=== PATIENT | female | born 1975 ===

== ENCOUNTER 2017-03-20 10:55 | Emergency (ER) | payer OTHER ==
[2017-03-20 11:01] VITALS: BP 124/74; PULSE 87; TEMP 97.8; O2SAT 99; BMI 23.2
--- NOTE | 2017-03-20 11:52 | ED PDOC ---
HPI: CCC, URI, Sore Throat Time Seen by Provider: 03/20/17 11:42 Chief Complaint (Nursing): ENT Problem Chief Complaint (Provider): ENT Problem History Per: Patient History/Exam Limitations: no limitations Onset/Duration Of Symptoms: Days Current Symptoms Are (Timing): Still Present Location Of Pain: Throat Sick Contacts (Context): None Associated Symptoms: Sore Throat. denies: Fever Additional History Per: Correction Additional Complaint(s): Patient is a 42 year old female who presents to ED after being referred from [facility]. Patient reports that she was setting up her ob appts (as she is 5 weeks ) and mentioned that she had a sore throat, so they sent her to ED. Reports 6 day history of sore throat with non-productive cough and 3 day history of L conjunctival injection. Denies fever. Denies vaginal bleeding, vaginal discharge, abdominal pain, or dysuria. Past Medical History Reviewed: Historical Data, Nursing Documentation, Vital Signs Vital Signs: Last Vital Signs Temp 97.8 F 03/20/17 11:00 Pulse 87 03/20/17 11:00 Resp BP 124/74 03/20/17 11:00 Pulse Ox 99 03/20/17 14:27 - Medical History PMH: No Chronic Diseases - Surgical History Surgical History: Cholecystectomy - Family History Family History: States: No Known Family Hx - Allergies Allergies/Adverse Reactions: Allergies Allergy/AdvReac Type Severity Reaction Status Date / Time No Known Allergies Allergy Unverified 03/20/17 11:43 Curb-65 Severity Score - CURB-65 Severity Score Confusion: No Bun >19mg/dl (>7mmol/L): No Respiratory Rate greater than/equal to 30: No Systolic BP <90 or Diastolic BP less than/equal 60mmHg: No Age >64: No Curb-65 Score: 0 Percentage 30-day mortality: 0.6% Review of Systems ROS Statement: Except As Marked, All Systems Reviewed And Found Negative Constitutional: Negative for: Fever, Chills Eyes: Positive for: Conjunctivae Inflammation ENT: Positive for: Throat Pain. Negative for: Ear Pain, Nose Discharge Cardiovascular: Negative for: Chest Pain Respiratory: Negative for: Cough, Shortness of Breath Gastrointestinal: Negative for: Nausea, Vomiting, Abdominal Pain Genitourinary Female: Negative for: Vaginal Discharge, Vaginal Bleeding Musculoskeletal: Negative for: Back Pain Neurological: Negative for: Weakness, Numbness Physical Exam - Reviewed Nursing Documentation Reviewed: Yes Vital Signs Reviewed: Yes - Physical Exam Appears: Positive for: Non-toxic, No Acute Distress Skin: Positive for: Normal Color, Warm. Negative for: Rash Eye Exam: Positive for: Normal appearance (right), PERRL, Conjunctival injection (left) ENT: Positive for: TM Is/Are (WNL), Pharyngeal Erythema. Negative for: Tonsillar Exudate, Tonsillar Swelling Neck: Positive for: Normal, Painless ROM, Supple Cardiovascular/Chest: Positive for: Regular Rate, Rhythm. Negative for: Murmur Respiratory: Positive for: Normal Breath Sounds. Negative for: Rhonchi, Stridor , Wheezing, Respiratory Distress Gastrointestinal/Abdominal: Positive for: Normal Exam. Negative for: Tenderness , Distended Back: Positive for: Normal Inspection. Negative for: L CVA Tenderness, R CVA Tenderness Extremity: Positive for: Normal ROM Neurologic/Psych: Positive for: Alert, Oriented - ECG O2 Sat by Pulse Oximetry: 99 (RA) Pulse Ox Interpretation: Normal Medical Decision Making Medical Decision Making: Patient is afebrile with normal lung sounds. Unlikely pneumonia due to this presentation. Will get rapid strep to evaluate for strep pharyngitis, but more likely viral given the co-occuring conjunctivitis. Review to downtime sheet for more information. Rapid strep was negative. Patient continued to be well appearing and afebrile. She was tolerating po in ED. She was instructed on the importance of following up with OB for routine care with this . She was instructed to increase fluid and rest, and prescribed erythromycin ointment for conjunctivitis. Disposition - Clinical Impression Clinical Impression: Sore throat, Conjunctivitis - Disposition Disposition: Routine/Home Disposition Time: 13:55 Condition: GOOD
== END 2017-03-20 14:00 | disposition home or self-care (01) ==
LOC: H.ER 10:55
DX: J02.9 Acute pharyngitis, unspecified (principal); H10.9 Unspecified conjunctivitis; Z33.1 Pregnant state, incidental

== ENCOUNTER 2017-10-30 08:33 | Inpatient (IN) | payer MEDICAID, SELFPAY ==
[2017-10-30 09:09] VITALS: BMI 27.9
[2017-10-30] MEDS: Lactated Ringer's 1,000 ML IV SCH (09:18)
[2017-10-30] MEDS ORDERED: Penicillin G 5 Million Unit Vial IVPB ONE (10:12)
[2017-10-30 10:15] LABS: BASO % 0.4 % (0.0-2.0); EOS # 0.1 K/uL (0.0-0.7); EOS % 0.7 % (0.0-4.0); HEMOGLOBIN 12.5 g/dL (12.0-16.0); LYMPH # 2.8 K/uL (1.0-4.3); LYMPH % 26.1 % (20.0-40.0); MEAN CELL VOLUME 88.6 fl (81.0-99.0); MEAN CORPUSCULAR HEMOGLOBIN 28.9 pg (27.0-31.0); MEAN CORPUSCULAR HGB CONC 32.6 g/dL (33.0-37.0); MEAN PLATELET VOLUME 10.5 fl (7.2-11.7); MONO # 0.8 K/uL (0.0-0.8); MONO % 7.6 % (0.0-10.0); NEUT # 6.9 K/uL (1.8-7.0); NEUT % 65.2 % (50.0-75.0); RBC 4.34 Mil/uL (3.80-5.20); WHITE BLOOD COUNT 10.6 K/uL (4.8-10.8)
[2017-10-30] MEDS ORDERED: Oxytocin 30 UNITS in Sodium Chloride 0.9% 500 ML IV ONE (12:56)
[2017-10-30] MEDS ORDERED: ceFAZolin IV 2 gm in Dextrose 2 GM/50 ML BAG IVPB ONE ×2 (19:13→20:15)
[2017-10-30] MEDS ORDERED: Morphine 1 mg/ml preservative-free Inj(Duramorph) ONE (19:17)
[2017-10-30] MEDS ORDERED: ceFAZolin 1 GM in Sodium Chloride 0.9% 100 ML IVPB ONE ×2 (19:18→19:22)
[2017-10-30] MEDS ORDERED: Succinylcholine 200 mg/10 ml Inj IV ONE (19:19)
[2017-10-30] MEDS ORDERED: ePHEDrine 50 mg/ml Inj ONE (19:19)
[2017-10-30] MEDS ORDERED: Propofol 10 mg/ml Inj (20 ML) ONE (19:19)
[2017-10-30] MEDS ORDERED: Midazolam 2 MG/2 ML VIAL ONE (19:46)
[2017-10-30] MEDS ORDERED: DiphenhydrAMINE 50 mg/ml Inj IVP PRN (21:38)
[2017-10-30] MEDS ORDERED: Oxycodone/Acetaminophen 5/325 mg Tab PO PRN ×2 (21:38→23:32)
[2017-10-30] MEDS ORDERED: Lactated Ringer's 1,000 ML IV SCH ×2 (22:30→23:30)
[2017-10-31] MEDS: Lactated Ringer's 1,000 ML IV SCH (03:52)
[2017-10-31 07:12] LABS: HEMOGLOBIN 11.4 g/dL (12.0-16.0); MEAN CELL VOLUME 88.4 fl (81.0-99.0); MEAN CORPUSCULAR HGB CONC 32.8 g/dL (33.0-37.0); RBC 3.92 Mil/uL (3.80-5.20); RED CELL DISTRIBUTION WIDTH 13.1 % (11.5-14.5); WHITE BLOOD COUNT 13.4 K/uL (4.8-10.8)
--- NOTE | 2017-10-31 09:07 | OBDS ---
DELIVERY PERSONNEL Delivery Doctor: Yee Cerda MD Phys Asst: Jayy Mccarty RN / Maren Olmstead RN Anesthesiologist: Riaz Sweeney MD Resident: Dr. Farah MATERNAL INFORMATION Delivery Anesthesia: Spinal Medications in Delivery: Pitocin Estimated Blood Loss (ml): 800 Placenta Cultured: No Maternal Complications: None Provider Comments: While at labor and delivery in active labor, patient admitted to staff that activ e herpes lesion started approximately 48 hours ago. On exam, small healing lesion noted. At that time , decision for delivery due to active herpes infection. I discussed plan with patient and d iscussed options. Patient agrees with plan for delivery. Primary low transverse section. Patient delivered viable with Apgars of 9 and 9 at one and 5 minutes respectively. Normal uterus, normal tubes and ovaries bilaterally. Estimated blood loss 800 mL Fluids 1000 mL lactated Ringer's Urine output 700 mL clear urine No complications LABOR SUMMARY EDC: 11/17/2017 00:00 No. Babies in Womb: 1 Attempted: No Labor Anesthesia: Spinal LABOR INFORMATION Reason for Induction: Not Applicable Oxytocin: N/A Group B Beta Strep: Positive Antibiotics # of Doses: 3 Antibiotics Time of Last Dose: 1910 Steroids Given: None Reason Steroids Not Administered: Not Applicable MEMBRANES Membranes Rupture Method: Spontaneous Rupture of Membranes: 10/30/2017 08:00 Length of Rupture (hrs): 11.58 Amniotic Fluid Color: Clear Amniotic Fluid Amount: Large Amniotic Fluid Odor: Normal STAGES OF LABOR Stage 3 hrs: 0 Stage 3 min: 1 CSECTION DELIVERY Primary Indication: Active Genital Herpes CSection Urgency: Non Elective CSection Incidence: Primary Labor: Labor Elective: Nonelective CSection Incision: Lower Uterine Transverse BABY A INFORMATION Delivery Date/Time: 10/30/2017 19:35 Method of Delivery: Born in Route : No : N/A Forceps: N/A Vacuum Extraction: N/A Shoulder Dystocia : No SHOULDER DYSTOCIA BABY A Delivery Date/Time: 10/30/2017 19:35 PRESENTATION/POSITION BABY A Presentation: Cephalic Cephalic Presentation: Vertex Breech Presentation: N/A PLACENTA INFORMATION BABY A Placenta Delivery Time : 10/30/2017 19:36 Placenta Method of Delivery: Expressed Placenta Status: Delivered SCORES BABY A Heart Rate 1 min: >100 bpm Resp Effort 1 min: Good Cry Reflex Irritability 1 min: Cough or Sneeze or Pulls Away Muscle Tone 1 min: Active Motion Color 1 min: Body Garten, Extremities Blue Resuscitation Effort 1 min: Tactile Stimulation SCORE 1 MIN: 9 Heart Rate 5 min: >100 bpm Resp Effort 5 min: Good Cry Reflex Irritability 5 min: Cough or Sneeze or Pulls Away Muscle Tone 5 min: Active Motion Color 5 min: Body Garten, Extremities Blue Resuscitation Effort 5 min: N/A SCORE 5 MIN: 9 INFORMATION BABY A Gestational Age at Delivery: 37.3 Gestational Status: Outcome : Liveborn Condition : Stable Infant Sex: Male IDENTIFICATION/MEDS BABY A ID Band Number: [id number] ID Band Location: Left Leg; Left Arm WEIGHT/LENGTH BABY A Birthweight (gms): 3190 Weight (lb): 7 Weight (oz): 0 CORD INFORMATION BABY A No. Cord Vessels: 3 Nuchal Cord : Around Neck x1, Loose Cord Blood Taken: Yes Suction: Mouth; Nose ASSESSMENT BABY A Infant Complications: None Physical Findings at Delivery: Within Normal Limits Respirations: Tachypnea Immigration Paralegal/ALS Called : No Care By: Kayli Myers RN Transferred To: Nursery
--- NOTE | 2017-10-31 09:12 | OBADHP ---
Datetime: 10/30/2017 13:28 Admit Comment, IP Provider: 42 yo with IUP 37.3 wks presents c/o gush of fluid and painful c tx e/10 min since 8 am. denies vb, +FM. No headache, recent fever, chest pain, sob, no urinary sympto ms. PNC: PCP Dr Guidry, [facility]. PObH: NVD x1 2006, IAB x1. PGynH: HPV diagnosed in 2012. PMH: h/o GDM well controlled w/ diet. FMH: none Meds PNV Allergies: NKDA VS wnl Speculum: +pooling, clear fluid Pelvic: 1-2/80/-2 monitor: 150/mod variability/15x15/cat 1/ no decc A/P 42 yo with IUP 37.3 wks admitted due to SROM Admit to unit Start IV fluids Proph abx, GBS+ Initiate labor protocol Case discussed w/ Dr Cerda, OB quality control assessor Javier Ferrer PGY1 Pelvic Type - PN: Adequate Extremities - PN: Normal Abdomen - PN: Normal Back - PN: Normal Breast - PN: Normal Lungs - PN: Normal Heart - PN: Normal Thyroid - PN: Normal Neurologic - PN: Normal HEENT - PN: Normal General - PN: Normal FHR - Baseline A Provider: 150 Amniotic Fluid Color, Provider: Clear Membranes, Provider: Ruptured Pool Provider: Positive Vital Signs Provider: Reviewed IP Chief Complaint: Suspected ruptured membranes NICHD Variability Prov Fetus A: Moderate 6-25bpm NICHD Accel Fetus A IP Provider: 15X15 FHR Category Provider Fetus A: Category I NICHD Decel Fetus A IP Provider: None Dilatation, Provider: 1-2 Effacement, Provider: 80 Station, Provider: -2 Genitourinary Exam: Normal DTRs - PN: Normal EGA AdmitDate IP: 37.3 IP Adm Impression: , intrauterine IP Admit Plan: Admit to unit; Initiate labor protocol
--- NOTE | 2017-10-31 10:21 | OP ---
PROCEDURE DATE: 10/30/2017 PREOPERATIVE DIAGNOSES: Active labor, spontaneous rupture of membranes, active genital herpes lesion. POSTOPERATIVE DIAGNOSES: Active labor, spontaneous rupture of membranes, active genital herpes lesion. OPERATION PERFORMED: Primary low-flap transverse section via Pfannenstiel incision. SURGEON: Harry Cerda MD. FITNESS DIRECTOR: Aman Strauss MD. Dr. Strauss was present from the beginning of the procedure to the end of procedure. Dr. Strauss was integral in exposing the surgical field, controlling intraoperative bleeding and manual delivery of the . TYPE OF ANESTHESIA: Spinal. ANESTHESIA ADMINISTERED BY: Estuardo Lind MD. DESCRIPTION OF PROCEDURE: The patient was taken to the operating room where spinal anesthesia was found to be adequate. The patient was prepped and draped in normal sterile fashion in the dorsal supine position with a leftward tilt. A Pfannenstiel skin incision was made with a scalpel. This was carried down through to the underlying layer of fascia with scalpel. Midline defect was made in the fascial layer with a scalpel. The fascial incision was then extended bilaterally sharply with curved Tubbs scissors. The fascial layer was from the underlying rectus muscles both bluntly and sharply with curved Tubbs scissors. The rectus muscles were at the midline. The peritoneum was then identified, tented up with the Vidya clamps x2, entered sharply with the Metzenbaum scissors. This peritoneal incision was then extended superiorly and inferiorly with good visualization of the urinary bladder. Bladder blade was inserted into the abdomen. The vesicouterine peritoneum was then identified, tented up with the Vidya clamps x2, entered sharply with Metzenbaum scissors. This peritoneal incision was then extended bilaterally with Metzenbaum scissors. The bladder flap was created digitally. The Crystal retractors were placed over the urinary bladder. The uterus was incised with a scalpel. The uterine incision was extended bilaterally bluntly. The infant's head was delivered atraumatically. Nose and mouth were suctioned with bulb suction. The remainder of the was delivered without complication. The cord was clamped and cut. The infant was handed off to waiting pediatricians. Cord blood was collected. The placenta was removed manually. The uterus was cleared of all clots and debris. The uterine incision was repaired with 0-Vicryl in a running, locked fashion. Second layer of the same suture was used to imbricate the first to obtain an excellent hemostasis. Reinspection of the uterine incision proved excellent hemostasis. The abdomen and pelvis were irrigated with copious amounts of warm normal saline. Reinspection of the uterine incision proved hemostasis. All instruments were removed from the patient. The peritoneal layer was closed with a running stitch of 2-0 chromic. The rectus muscles were reapproximated with a running stitch of 2-0 chromic. The fascial layer was closed with a running stitch of 0 Vicryl. Subcutaneous tissue was closed with a running stitch of 3-0 plain. The skin was closed with riky. The patient tolerated the procedure well. All sponge, lap count, needle counts were correct x2. The patient was given 2 g of Ancef just prior to the beginning of the procedure. There were no complications. The patient was taken to the recovery room in awake and stable condition. Harry Cerad MD
[2017-10-31] MEDS: Oxycodone/Acetaminophen 5/325 mg Tab PO PRN (20:37)
[2017-11-01] MEDS: Oxycodone/Acetaminophen 5/325 mg Tab PO PRN ×3 (03:13→19:44)
--- NOTE | 2017-11-01 07:43 | OBPPN ---
Datetime: 10/31/2017 07:22 PP Pain Prov: Within normal limits PP Nausea Prov: Denies PP Flatus Prov: No PP BM Prov: No PP Breasts Prov: Not Done PP Heart Prov: Normal PP Lungs Prov: Normal PP Abdomen/Uterus Prov: Normal PP Lochia Prov: Normal PP Vulva/Perineum Prov: Not Done PP CVA Tenderness Prov: Normal PP Extremities Prov: Normal PP C/S Incision Prov: Normal PP Progress Prov: Normal PP Impression Prov: Normal progression PP Plan Prov: Continue present management PP Progress Note Prov: S: 42 yo s/p on 10/30/17. Pt. is seen and examined at beds bryce this AM. No overnight events. Pt reports mild abdominal pain, but well controlled with pain meds. D/c smith, wound dressing clean and intact. No nausea, advised to advance diet as tolerated. Breast feeding without difficulty. Lochia is similar to menses volume. No bowel movement, but passing gas pe r rectum. Denies fever/chills, diarrhea, nausea/vomiting, chest pain, dyspnea, and dizziness. VS: stable GEN: NAD, seen baby Cardio: S1S2, no murmurs Lungs: clear breath sounds b/l, no wheezing Abdomen: BS+, tenderness to palpation. Wound dressing dry and intact. Uterus is firm and at the le nilo of the umbilicus. EXT: No edema, calves nontender NEURO/PSYCH: AAOx3, no grossly focal deficits, preserved affect and mood. Assessment/Plan: 42 yo s/p on 10/30/17. Pt remains afebrile, tolerating pain wit h medication, doing well on POD#1. OOB with caution SCDs for DVT prophylaxis, encouraged ambulating Percocet 5/325mg, and Motrin 600mg for pain. Colace 100mg PO BID/Senokot 17.2 mg for constipation Encourage and ambulating f/u CBC post op, pending Tdap before d/c? Anticipated d/c to home, 11/02/17. Javier Ferrer MD PGY-1 OB Hospitalist on-call. On rounds this morning, I saw and examined this pt. Agree with PGY 1 erica HUNG Add: RPR neg - FTA + : will dicsus with Dr Mendiola (postal support employee) And Dr Chao Valle ... need to obtain copy of MFM report IP PP Procedures: None Vital Signs Provider PP: Reviewed; Within Normal Limits
[2017-11-01] MEDS: Simethicone 80 mg Chewtab PO PRN (16:07)
--- NOTE | 2017-11-01 16:28 | OBPPN ---
Datetime: 11/01/2017 07:01 PP Pain Prov: Within normal limits PP Nausea Prov: Denies PP Flatus Prov: Yes PP BM Prov: No PP Breasts Prov: Not Done PP Heart Prov: Normal PP Lungs Prov: Normal PP Abdomen/Uterus Prov: Normal PP Lochia Prov: Normal PP Vulva/Perineum Prov: Not Done PP Extremities Prov: Normal PP C/S Incision Prov: Normal PP Progress Prov: Normal PP Impression Prov: Normal progression PP Plan Prov: Continue present management PP Progress Note Prov: S: 42 yo s/p . Pt. is seen and examined at bedside this AM. No overnight events. Pt reports mild abdominal pain, but well controlled with pain meds. D/c smith, w ound clean, dry, no exudates.No nausea, tolerating PO well. Breast feeding without difficulty. Lochia is similar to menses volume. No bowel movement, but passing gas per rectum. Denies fever/chills, kevin rrhea, nausea/vomiting, chest pain, dyspnea, and dizziness. VS: stable GEN: NAD, seen baby Cardio: S1S2, no murmurs Lungs: clear breath sounds b/l, no wheezing Abdomen: BS+, tenderness to palpation. Wound dry and clean. Uterus is firm and at the level of the umbilicus. EXT: No edema, calves nontender NEURO/PSYCH: AAOx3, no grossly focal deficits, preserved affect and mood. Assessment/Plan: 42 yo s/p on 10/30/17. Pt remains afebrile, tolerating pain wit h medication, doing well on POD#2. OOB with caution -discussed with Dr. Mendiola -Recommend f/u with RPR FTA + -Plan for MMR at discharge -Pending HSV2 cx SCDs for DVT prophylaxis, encouraged ambulating Percocet 5/325mg, and Motrin 600mg for pain. Colace 100mg PO BID/Senokot 17.2 mg for constipation Encourage CBC post op 11.4/34.4 Tdap before d/c yes Anticipated d/c to home tomorro Javier Ferrer PGY 1 OB Hospitalist on-call. On rounds, I saw and examined this patient. Agree with note. ABHILASH LYNN PP Procedures: None Vital Signs Provider PP: Reviewed
[2017-11-02] MEDS: Oxycodone/Acetaminophen 5/325 mg Tab PO PRN ×2 (01:07→21:36)
[2017-11-02] MEDS: Simethicone 80 mg Chewtab PO PRN ×2 (08:39→16:28)
[2017-11-03] MEDS: Oxycodone/Acetaminophen 5/325 mg Tab PO PRN (05:13)
[2017-11-03] MEDS ORDERED: Lactated Ringer's 1,000 ML IV SCH (06:15)
[2017-11-03] MEDS ORDERED: Measles, Mumps, and Rubella 0.5 ML VIAL SC ONE (09:00)
[2017-11-03] MEDS: Simethicone 80 mg Chewtab PO PRN (09:23)
[2017-11-03 21:58] VITALS: BP 121/75; PULSE 70; RESP 20; TEMP 99.3; O2SAT 100
== END 2017-11-03 13:00 | disposition home or self-care (01) | DRG 765 ==
LOC: H.EROB2 08:33 → H.L&D 09:38 → H.OB/GYN 23:27
PROVIDERS: ADMIT Obstetrics & Gynecology; ATTEND Obstetrics & Gynecology
PROC: 10D00Z1 Extraction of Products of Conception, Low, Open Approach (ICD-10-PCS; principal; 2017-10-30)
PROC: 4A1HXCZ Monitoring of Products of Conception, Cardiac Rate, External Approach (ICD-10-PCS; 2017-10-30)
PROC: 3E0234Z Introduction of Serum, Toxoid and Vaccine into Muscle, Percutaneous Approach (ICD-10-PCS; 2017-11-03)
DX: O98.32 Other infections with a predominantly sexual mode of transmission complicating childbirth (principal); O86.19 Other infection of genital tract following delivery; A60.09 Herpesviral infection of other urogenital tract; O69.81X0 Labor and delivery complicated by cord around neck, without compression, not applicable or unspecified; K59.00 Constipation, unspecified; Z37.0 Single live birth; Z3A.37 37 weeks gestation of pregnancy; Z23 Encounter for immunization; Z86.32 Personal history of gestational diabetes